=== PATIENT | male | born 2000 | race Caucasian/White ===

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

== ENCOUNTER → 2022-01-28 | Outpatient (CLI) | payer OTHER | LOC: RAD 15:43 | DX: M79.641 Pain in right hand (principal) ==

== ENCOUNTER → 2024-08-22 | Outpatient (CLI) | payer OTHER | LOC: RAD 17:26 | DX: M25.572 Pain in left ankle and joints of left foot (principal); Z87.828 Personal history of other (healed) physical injury and trauma ==